=== PATIENT | female | born 1965 | race Caucasian/White ===

== ENCOUNTER 2017-01-13 19:14 | Emergency (ER) | payer SELFPAY ==
[~2017-01-13 19:14] MED LIST: CLON.1 PO; ZOLO50TA PO
[2017-01-13 19:17] VITALS: BP 131/93; PULSE 110; RESP 18; TEMP 99; O2SAT 94
== END 2017-01-13 19:38 | disposition left against medical advice (07) ==
LOC: NED 19:14
DX: Z03.89 Encounter for observation for other suspected diseases and conditions ruled out (principal)
CPT/HCPCS: 99281

== ENCOUNTER 2017-01-21 12:50 | Emergency (ER) | payer SELFPAY ==
[~2017-01-21] VITALS: Ht 154.9 cm; Wt 68.0 kg
[2017-01-21 12:53] VITALS: BP 199/113; PULSE 89; RESP 24; TEMP 99.5; O2SAT 98
[2017-01-21 13:18] VITALS: BP_SYST 165; BP_SYST 175; BP_DIAS 109; BP_DIAS 99
[2017-01-21] MEDS ORDERED: ONDANSETRON HCL 4 MG/2 ML VIAL IVP ONE (13:30)
[2017-01-21] MEDS ORDERED: SODIUM CHLORIDE 0.9% FLUSH 10 ML FLUSH IV FLUSH PRN (13:30)
[2017-01-21 13:37] VITALS: RESP 18; O2SAT 98
[2017-01-21 13:59] LABS: BACTERIA, URINE RARE /hpf; BLOOD, URINE NEG (NEG); COMMENT (UR) CULT NOT INDICATED; CULTURE IF INDICATED CULT NOT INDICATED; GLUCOSE,URINE NEG (NEG); KETONE, URINE NEG (NEG); NITRITE,URINE NEG (NEG); PH, URINE 7.5 (5.0-8.5); SQUAMOUS EPITHELIAL CELL URINE 1 /hpf (0-5); URINE COLOR LIGHT-YELLOW (YELLW/STRAW)
[2017-01-21] MEDS ORDERED: LIDOCAINE VISCOUS 2% SOLN 15 ML UDC PO ONE (14:00)
[2017-01-21] MEDS ORDERED: ALUMINUM/MAGNESIUM/SIMETH 30 ML CUP PO ONE (14:00)
--- NOTE | 2017-01-21 14:00 | PD ---
HPI Chief Complaint: Abdominal Pain Time Seen by Provider: 12:56 Travel History International Travel<30 days: No Contact w/Intl Traveler<30days: No Traveled to known affect area: No History of Present Illness HPI 51-year-old female here with complaint of abdominal pain. Patient has been having approximate 4 weeks of mild epigastric abdominal discomfort, nausea, anorexia, vomiting. She notes that she has been constipated but has been having flatus without any difficulty. Today the abdominal pain worsened. Again this is primarily epigastric but radiates her at the abdomen. History of alcohol abuse but states that she has not been drinking recently. No history of pancreatitis or hepatobiliary pathology, denies history of reflux, gastritis or peptic ulcer. PFSH Past Medical History ADHD: Yes Anxiety: Yes Depression: Yes Cancer: No Cardiovascular Problems: No Chemotherapy: No Diabetes: No Diminished Hearing: No Endocrine: No Glaucoma: No Genitourinary: No Hepatitis: No Hiatal Hernia: No Hypertension: Yes Immune Disorder: No Medical other: Yes (TAKES LYRICA FOR HER HAND) Musculoskeletal: No Neurologic: No Psychiatric: Yes (PTSD) Reproductive: No Respiratory: No Immunizations Current: No Thyroid Disease: No ?: Not : 3 Para: 3 Miscarriage: 0 : 0 Tubal Ligation: Yes (1991) Past Surgical History Other Surgery: Yes (CARPLE-TUNNEL) Social History Alcohol Use: Yes (BEER OCC.) Tobacco Use: Yes (/2 PPD) Substance Use: Yes (MARIJUANA) Allergies-Medications (Allergen,Severity, Reaction): Coded Allergies: Codeine (Verified Allergy, Severe, vomiting, 01/21/17) Reported Meds & Prescriptions Reported Meds & Active Scripts Active No Active Prescriptions or Reported Medications Review of Systems Except as stated in HPI: all other systems reviewed are Neg Physical Exam Narrative GENERAL: Well-appearing female in no acute distress SKIN: Focused skin assessment warm/dry. HEAD: Normocephalic. EYES: No scleral icterus. No injection or drainage. ENT: Mucous membranes pink and moist. NECK: Supple CARDIOVASCULAR: Regular rate and rhythm. RESPIRATORY: No accessory muscle use. GASTROINTESTINAL: Obese. Abdomen soft, mild tenderness to palpation in the epigastrium and diffuse throughout the abdomen without rebound or guarding MUSCULOSKELETAL: Normal gait NEUROLOGICAL: Awake and alert. Normal speech. PSYCHIATRIC: Appropriate mood and affect; insight and judgment normal. Data Data Last Documented VS Vital Signs Date Time Temp Pulse Resp B/P Pulse Ox O2 Delivery O2 Flow Rate FiO2 01/21/17 13:37 18 98 Room Air 01/21/17 13:18 175/109 165/99 01/21/17 12:53 99.5 89 Orders Complete Blood Count With Diff (01/21/17 13:22) Comprehensive Metabolic Panel (01/21/17 13:22) Lipase (01/21/17 13:22) Urinalysis - C+S If Indicated (01/21/17 13:22) Iv Access Insert/Monitor (01/21/17 13:22) Ecg Monitoring (01/21/17 13:22) Oximetry (01/21/17 13:22) Ondansetron Inj (Zofran Inj) (01/21/17 13:30) Sodium Chloride 0.9% Flush (Ns Flush) (01/21/17 13:30) Ed Urine Pregnancytest Poc (01/21/17 13:22) Al-Mag Hy-Si 40-40-4 Mg/Ml Liq (Mag-Al P (01/21/17 14:00) Lidocaine 2% Viscous (Xylocaine 2% Visco (01/21/17 14:00) Labs Laboratory Tests Test 01/21/17 13:31 White Blood Count 12.2 TH/MM3 Red Blood Count 4.47 MIL/MM3 Hemoglobin 14.0 GM/DL Hematocrit 40.9 % Mean Corpuscular Volume 91.4 FL Mean Corpuscular Hemoglobin 31.2 PG Mean Corpuscular Hemoglobin 34.1 % Concent Red Cell Distribution Width 13.5 % Platelet Count 304 TH/MM3 Mean Platelet Volume 7.3 FL Neutrophils (%) (Auto) 70.2 % Lymphocytes (%) (Auto) 18.6 % Monocytes (%) (Auto) 9.5 % Eosinophils (%) (Auto) 0.8 % Basophils (%) (Auto) 0.9 % Neutrophils # (Auto) 8.5 TH/MM3 Lymphocytes # (Auto) 2.3 TH/MM3 Monocytes # (Auto) 1.2 TH/MM3 Eosinophils # (Auto) 0.1 TH/MM3 Basophils # (Auto) 0.1 TH/MM3 CBC Comment DIFF FINAL Differential Comment Urine Color LIGHT-YELLOW Urine Turbidity CLEAR Urine pH 7.5 Urine Specific Jewell 1.006 Urine Protein NEG mg/dL Urine Glucose (UA) NEG mg/dL Urine Ketones NEG mg/dL Urine Occult Blood NEG Urine Nitrite NEG Urine Bilirubin NEG Urine Urobilinogen LESS THAN 2.0 MG/DL Urine Leukocyte Esterase NEG Urine RBC LESS THAN 1 /hpf Urine WBC LESS THAN 1 /hpf Urine Squamous Epithelial 1 /hpf Cells Urine Bacteria RARE /hpf Microscopic Urinalysis Comment CULT NOT INDICATED Sodium Level 136 MEQ/L Potassium Level 4.1 MEQ/L Chloride Level 99 MEQ/L Carbon Dioxide Level 28.3 MEQ/L Anion Gap 9 MEQ/L Blood Urea Nitrogen 5 MG/DL Creatinine 0.59 MG/DL Estimat Glomerular Filtration 107 ML/MIN Rate Random Glucose 102 MG/DL Calcium Level 8.1 MG/DL Total Bilirubin 0.3 MG/DL Aspartate Amino Transf 30 U/L (AST/SGOT) Alanine Aminotransferase 42 U/L (ALT/SGPT) Alkaline Phosphatase 97 U/L Total Protein 6.9 GM/DL Albumin 3.1 GM/DL Lipase 70 U/L MDM Medical Decision Making Medical Screen Exam Complete: Yes Emergency Medical Condition: Yes Medical Record Reviewed: Yes Differential Diagnosis Obese 51-year-old female with approximately one month of epigastric abdominal discomfort, nausea, vomiting and constipation. Differential with gastritis, pancreatitis, GERD, hepatobiliary pathology, peptic ulcer disease, bowel obstruction, UTI and less likely peritoneal pathology given duration and benign abdominal examination Narrative Course Patient placed on monitor, IV established and blood obtained. Patient given 4 mg Zofran, GI cocktail. CBC, CMP, lipase, urinalysis and urine test and unremarkable. Patient felt improved and will be discharged home with symptomatic treatment for gastritis versus peptic ulcer disease. Stool softener for her constipation outpatient primary care referral. Diagnosis Primary Impression: Gastritis Qualified Code: K29.00 - Acute gastritis without hemorrhage, unspecified gastritis type Additional Impressions: Nausea and vomiting Qualified Code: R11.2 - Non-intractable vomiting with nausea, unspecified vomiting type Constipation Qualified Code: K59.00 - Constipation, unspecified constipation type Referrals: [facility] as needed Primary Care Physician as needed Additional Instructions: Antacid as prescribed. Nausea medications as needed. Stool softeners as needed for constipation. Follow-up with primary care to establish care. Med/Other Pt SpecificInfo: Prescription(s) given Scripts Polyethylene Glycol 3350 Powder (Miralax Powder)17 Gm Powd17 Gm PO DAILY #1 CAN Ref 0 Mix and dissolve one measuring cap-ful (17 grams) in water or juice. Prov:Adalgisa Arteaga MD 01/21/17 Promethazine (Phenergan)25 Mg [id number] Mg PO Q6H PRN (NAUSEA OR VOMITING) #10 TAB Ref 0 Prov:Adalgisa Arteaga MD 01/21/17 Ranitidine (Zantac)150 Mg Hbo055 Mg PO BID #60 TAB Ref 0 Prov:Adalgisa Arteaga MD 01/21/17 Disposition: 01 DISCHARGE HOME Condition: Stable Adalgisa Arteaga MD Jan 21, 2017 14:00
[2017-01-21 14:01] LABS: AUTOMATED NEUTROPHIL # 8.5 TH/MM3 (1.8-7.7); BASOPHIL # 0.1 TH/MM3 (0-0.2); BASOPHIL % 0.9 % (0.0-2.0); EOSINOPHIL # 0.1 TH/MM3 (0-0.4); EOSINOPHIL % 0.8 % (0.0-4.0); HEMATOCRIT 40.9 % (35.0-46.0); HEMO FLAGS DIFF FINAL; LYMPH % 18.6 % (9.0-44.0); LYMPHOCYTE # 2.3 TH/MM3 (1.0-4.8); MEAN CELL VOLUME 91.4 FL (80.0-100.0); MEAN CORPUSCULAR HEMOGLOBIN 31.2 PG (27.0-34.0); MEAN CORPUSCULAR HGB CONC 34.1 % (32.0-36.0); MONO % 9.5 % (0.0-8.0); NEUT % 70.2 % (16.0-70.0); PLATELET COUNT 304 TH/MM3 (150-450); RED BLOOD COUNT 4.47 MIL/MM3 (4.00-5.30); RED CELL DISTRIBUTION WIDTH 13.5 % (11.6-17.2); WHITE BLOOD COUNT 12.2 TH/MM3 (4.0-11.0)
[2017-01-21 14:38] LABS: ALKALINE PHOSPHATASE 97 U/L (45-117); TOTAL BILIRUBIN ADULT 0.3 MG/DL (0.2-1.0)
[2017-01-21 14:39] LABS: ALT (GPT) 42 U/L (10-53); ANION GAP 9 MEQ/L (5-15); AST (GOT) 30 U/L (15-37); BICARBONATE 28.3 MEQ/L (21.0-32.0); BLOOD UREA NITROGEN 5 MG/DL (7-18); CHLORIDE 99 MEQ/L (98-107); GLOMERULAR FILTRATION RATE 107 ML/MIN (>89); POTASSIUM 4.1 MEQ/L (3.5-5.1); SODIUM (NA) 136 MEQ/L (136-145)
[2017-01-21] MEDS ORDERED: ZANT150T2 PO (14:55)
[2017-01-21] MEDS ORDERED: MIRA3350 PO (14:55)
[2017-01-21] MEDS ORDERED: PROM25TA10 PO (14:55)
[2017-01-21 15:12] VITALS: BP 132/78
== END 2017-01-21 15:14 | disposition home or self-care (01) ==
LOC: NEPD 12:50
DX: K29.70 Gastritis, unspecified, without bleeding (principal); K59.00 Constipation, unspecified; F43.10 Post-traumatic stress disorder, unspecified; I10 Essential (primary) hypertension; F90.9 Attention-deficit hyperactivity disorder, unspecified type; F32.9 Major depressive disorder, single episode, unspecified; F17.200 Nicotine dependence, unspecified, uncomplicated; Z88.5 Allergy status to narcotic agent
CPT/HCPCS: 80053; 81001; 83690; 84703; 85025; 96374; 99284; J2405